=== PATIENT | female | born 1995 ===

== ENCOUNTER 2018-08-30 03:49 | Emergency (ER) | payer SELFPAY ==
[2018-08-30 04:26] VITALS: RESP 20
--- NOTE | 2018-08-30 05:12 | C.PDOC ---
History Of Present Illness 22 year old female presents to the ER for evaluation of nausea and some vomiting after eating a brownie that had marijuana in it at midnight. Patient is unsure how much marijuana was in it and states she got it from "this julianna". Denies ETOH use or other complaints at this time. Time Seen by Provider: 08/30/18 04:20 Chief Complaint (Nursing): Substance Abuse History Per: Patient History/Exam Limitations: no limitations Onset/Duration Of Symptoms: Hrs Current Symptoms Are (Timing): Still Present Suicide/Self Injury Attempted (Context): None Modifying Factor(s): Marijuana Involuntary Hold By: None Recent travel outside of the [place]: No Past Medical History Reviewed: Historical Data, Nursing Documentation, Vital Signs Vital Signs: Last Vital Signs Temp 97.7 F 08/30/18 04:21 Pulse 117 H 08/30/18 04:21 Resp 20 08/30/18 04:21 BP 129/83 08/30/18 04:21 Pulse Ox 100 08/30/18 04:21 Family History: States: No Known Family Hx - Social History Hx Alcohol Use: Yes Hx Substance Use: Yes (first time to take marijuana 08/30/2018) Review Of Systems Constitutional: Negative for: Fever, Chills Cardiovascular: Negative for: Chest Pain, Palpitations Respiratory: Negative for: Cough, Shortness of Breath Gastrointestinal: Negative for: Nausea, Vomiting Neurological: Negative for: Weakness, Numbness Physical Exam - Physical Exam Appears: Non-toxic Skin: Normal Color, Warm, Dry Head: Atraumatic, Normacephalic Eye(s): bilateral: Normal Inspection, PERRL, EOMI Oral Mucosa: Moist Neck: Normal, No Midline Cervical Tenderness, No Paracervical Tenderness, Supple Chest: Symmetrical, No Tenderness Cardiovascular: Rhythm Regular Respiratory: Normal Breath Sounds, No Rales, No Rhonchi, No Wheezing Gastrointestinal/Abdominal: Soft, No Tenderness Extremity: Normal ROM (x4) Neurological/Psych: Oriented x3, Normal Speech Gait: Steady ED Course And Treatment O2 Sat by Pulse Oximetry: 100 (Room air) Pulse Ox Interpretation: Normal Medical Decision Making Medical Decision Making: Patient is resting comfortably in the ER in no acute distress, ambulatory with steady gait, clinically sober, vitals are stable, will discharge home with instructions to follow up with PMD. Do not use drugs. Disposition - Disposition Referrals: [facility] [Outside] Disposition: HOME/ ROUTINE Disposition Time: 05:32 Condition: STABLE Additional Instructions: Follow up with the medical doctor within 1-2 days. Return if worsened. Instructions: Marijuana Forms: [facility] [facility] ([place]) - Clinical Impression Clinical Impression: Marijuana use - PA / [employer] / Resident Statement MD/DO has reviewed & agrees with the documentation as recorded. - Scribe Statement The provider has reviewed the documentation as recorded by the Scribpatrick La All medical record entries made by the Amandaibpatrick were at my direction and personally dictated by me. I have reviewed the chart and agree that the record accurately reflects my personal performance of the history, physical exam, medical decision making, and the department course for this patient. I have also personally directed, reviewed, and agree with the discharge instructions and disposition.
[2018-08-30 05:53] VITALS: BP 122/71; PULSE 82; TEMP 97.2
[2018-08-30 06:36] VITALS: O2SAT 100
== END 2018-08-30 05:53 | disposition home or self-care (01) ==
LOC: C.ER 03:49
DX: F12.90 Cannabis use, unspecified, uncomplicated (principal)